=== PATIENT | male | born 1955 | race Caucasian/White ===

== ENCOUNTER 2017-11-20 12:03 | Emergency (ER) | payer OTHER ==
[2017-11-20 12:10] VITALS: BP 133/86; PULSE 84; TEMP 98.5; BMI 25.6
--- NOTE | 2017-11-20 13:14 | PDOC ---
Attending Attestation - Resident Resident Name: Shirley Sun - ED Attending Attestation I have performed the following: I have examined & evaluated the patient, The case was reviewed & discussed with the resident, I agree w/resident's findings & plan, Exceptions are as noted - HPI HPI: 62 yo M history HL presents with L heel pain. He states that he injured his heel 3 weeks ago, landed on a base on his heel while playing softball. It started to improve with rest, but then he was dancing at an sikh wedding a week ago, and the pain started again. He has difficulty walking, and notices that the pain is worse when he stands on his toes. No weakness, numbness. He is able to walk, however, with a limp. - Physicial Exam PE: GENERAL: Awake, alert, and fully oriented, in no acute distress HEAD: No signs of trauma EYES: PERRLA, EOMI, sclera anicteric, conjunctiva clear ENT: Auricles normal inspection, hearing grossly normal, nares patent, oropharynx clear without exudates. Moist mucosa NECK: Normal ROM, supple, no lymphadenopathy, JVD, or masses LUNGS: Breath sounds equal, clear to auscultation bilaterally. No wheezes, and no crackles HEART: Regular rate and rhythm, normal S1 and S2, no murmurs, rubs or gallops ABDOMEN: Soft, nontender, normoactive bowel sounds. No guarding, no rebound. No masses EXTREMITIES: +Tenderness to the L heel along the distal achilles tendon. Tendon function intact- Archuleta test negative. Remainder of extremities with normal range of motion, no edema. No clubbing or cyanosis. No cords, erythema, or tenderness NEUROLOGICAL: Cranial nerves II through XII grossly intact. Normal speech, normal gait SKIN: Warm, Dry, normal turgor, no rashes or lesions noted. - Medical Decision Making Pt with tendon function intact, more likely a tendinitis from overuse. No signs of cellulitis. Will treat with medrol dose fernando, as he has failed outpatient NSAIDs.
--- NOTE | 2017-11-20 13:24 | PDOC ---
History of Present Illness <Miranda Palencia - Last Filed: 11/20/17 13:24> - History of Present Illness Initial Comments: 62 year old w/ past medical history of HLD who presents with L heel injury 3 weeks ago worsening for the past 1 week. The patient initially hit his heel on a base while playing softball 3 weeks ago and 1 week ago the patient was jumping up and down dancing at a wedding afterwhich he felt pain while walking. The patient has taken Aleve without relief. The patient denies any calf pain, fevers or radiating of the pain. The patient has no other complaints at bedside. PMHX: as in HPI PSHX: none Meds: lipitor Allergies: none Tob: none Etoh: none Rec drugs: none <Shirley Sun - Last Filed: 11/20/17 14:33> - General Chief Complaint: Injury Stated Complaint: LEFT FOOT PAIN Time Seen by Provider: 11/20/17 12:06 Past History <Miranda Palencia - Last Filed: 11/20/17 13:24> - Past Medical History Cancer: Yes (PROSTATE) COPD: No Disorders: Yes (PROSTATE CA) Hypercholesterolemia: Yes - Suicide/Smoking/Psychosocial Hx Smoking History: Never smoked Have you smoked in the past 12 months: No Information on smoking cessation initiated: No Hx Alcohol Use: No Drug/Substance Use Hx: No <Shirley Sun - Last Filed: 11/20/17 14:33> - Past Medical History Allergies/Adverse Reactions: Allergies Allergy/AdvReac Type Severity Reaction Status Date / Time No Known Allergies Allergy Verified 11/20/17 12:04 Home Medications: Ambulatory Orders Atorvastatin Ca [Lipitor] 20 mg PO HS 11/20/17 Methylprednisolone [Medrol Dose Tru] 4 mg PO ASDIR #21 tablet 11/20/17 Review of Systems - Review of Systems Able to Perform ROS?: Yes Is the patient limited Kiswahili proficient: No <Shirley Sun - Last Filed: 11/20/17 14:33> *Physical Exam - Vital Signs Last Vital Signs Temp Pulse Resp BP Pulse Ox 98.5 F 84 18 133/86 98 11/20/17 12:03 11/20/17 12:03 11/20/17 12:03 11/20/17 12:03 11/20/17 12:03 <Miranda Palencia - Last Filed: 11/20/17 13:24> - Vital Signs Last Vital Signs Temp Pulse Resp BP Pulse Ox 98.5 F 84 18 133/86 98 11/20/17 12:03 11/20/17 12:03 11/20/17 12:03 11/20/17 12:03 11/20/17 12:03 <Shirley Sun - Last Filed: 11/20/17 14:33> ED Treatment Course - RADIOLOGY Radiology Studies Ordered: Category Date Time Status ANKLE-LEFT [RAD] Stat Radiology 11/20/17 12:14 Completed <Shirley Sun - Last Filed: 11/20/17 14:33> Medical Decision Making - Medical Decision Making 62 year old w/ past medical history of HLD who presents with L heel injury 3 weeks ago worsening for the past 1 week. The patient's history and physical are concerning for tendonitis vs partial tendon rupture vs tendonopathy. Patient's physical exam showed some erythema at the injury site, but no deficits in function or weakness. L ankle XR: unremarkable. Patient stable for discharge and given medrol dose tru. Advised to follow up with PCP in 1 week and given strict return precautions. <Shirley Sun - Last Filed: 11/20/17 14:33> *DC/Admit/Observation/Transfer - Discharge Dispostion Decision to Admit order: No <Miranda Palencia - Last Filed: 11/20/17 13:24> <Shirley Sun - Last Filed: 11/20/17 14:33> Diagnosis at time of Disposition: Tendinitis - Discharge Dispostion Condition at time of disposition: Stable - Prescriptions Prescriptions: Methylprednisolone [Medrol Dose Tru] 4 mg PO ASDIR #21 tablet - Referrals Referrals: Yvan Engle MD [Staff Physician] - Keyur Beaver [Primary Care Provider] - - Patient Instructions Printed Discharge Instructions: DI for Achilles Tendinopathy - Post Discharge Activity
== END 2017-11-20 13:43 | disposition home or self-care (01) ==
LOC: FER 12:03 → SUPCPDRO 12:03 → FER 13:43
DX: M77.52 Other enthesopathy of left foot and ankle (principal); E78.5 Hyperlipidemia, unspecified; Z85.46 Personal history of malignant neoplasm of prostate
CPT/HCPCS: 73610-TC-LT-FY; 99283-25